=== PATIENT | male | born 1990 | race Caucasian/White ===

== ENCOUNTER 2017-09-27 09:11 | Day surgery (SDC) | payer BC ==
[2017-09-20 16:31] LABS: BASOPHILS % 0.5 % (0.0-2.0); EOSINOPHILS # 0.2 10^3/ul (0.0-0.5); EOSINOPHILS % 2.8 % (0.0-7.0); HEMATOCRIT 42.6 % (42.0-52.0); HEMOGLOBIN 14.4 g/dl (14.0-18.0); LYMPHOCYTES # 1.1 10^3/ul (0.8-2.9); LYMPHOCYTES % 18.2 % (15.0-51.0); MEAN CORPUSCULAR HEMOGLOBIN 30.4 pg (29.0-33.0); MEAN CORPUSCULAR HGB CONC 33.8 g/dl (32.0-37.0); MEAN CORPUSCULAR VOLUME 90.1 fl (82.0-101.0); MEAN PLATELET VOLUME 10.5 fl (7.4-10.4); MONOCYTE # 0.7 10^3/ul (0.3-0.9); MONOCYTES % 12.7 % (0.0-11.0); NEUTROPHIL # 3.8 10^3/ul (1.6-7.5); NEUTROPHILS % 65.3 % (39.0-77.0); PLATELET COUNT 278 10^3/UL (140-415); RED BLOOD COUNT 4.73 10^6/ul (4.70-6.10); WHITE BLOOD COUNT 5.8 10^3/ul (4.8-10.8)
[2017-09-20 16:47] LABS: INR 1.2; PROTIME 15.4 Sec (11.9-14.9); PT RATIO 1.2
[2017-09-20 16:48] LABS: PARTIAL THROMBOPLASTIN TIME 28.5 Sec (25.0-35.0)
[2017-09-20 16:49] LABS: ALBUMIN 4.5 g/dl (3.3-4.9); ALBUMIN/GLOBULIN RATIO 1.45; BILIRUBIN,INDIRECT 0.4 mg/dl (0-1.1); BILIRUBIN,TOTAL 0.4 mg/dl (0.2-1.3); TOTAL PROTEIN 7.6 g/dl (6.1-8.1)
[2017-09-20 17:08] LABS: CALCIUM 9.4 mg/dl (8.4-10.2); CREATININE 1.01 mg/dl (0.61-1.24); POTASSIUM 4.2 mmol/L (3.5-5.1)
--- NOTE | 2017-09-20 17:25 | RADRPT ---
PROCEDURE: XR Chest. CLINICAL INDICATION: ACUTE BRONCHITIS TECHNIQUE: PA and Lateral views of the chest were obtained. COMPARISON: None. FINDINGS: The cardiomediastinal silhouette is within normal limits. The lungs are clear. No signs of pleural f luid or pneumothorax are seen. The osseous structures and soft tissues are unremarkable. IMPRESSION: No evidence for active cardiopulmonary disease. RPTAT:AAJJ Charlene Tan Physician Date Time Electronically viewed and signed by Charlene Tan Physician on 09/20/2017 17:25 QL/
[2017-09-20 18:20] LABS: ADD UMIC NO; UR ASCORBIC ACID NEGATIVE (NEGATIVE); UR BILIRUBIN (Dip) NEGATIVE (NEGATIVE); UR BLOOD (Dip) NEGATIVE (NEGATIVE); UR CLARITY CLEAR (CLEAR); UR COLOR YELLOW (YELLOW); UR GLUCOSE (Dip) NEGATIVE (NEGATIVE); UR KETONES (Dip) NEGATIVE (NEGATIVE); UR LEUKOCYTE ESTERASE (Dip) NEGATIVE Leu/ul (NEGATIVE); UR NITRITE (Dip) NEGATIVE (NEGATIVE); UR SPECIFIC GRAVITY (Dip) 1.021 (1.003-1.030); UR TOTAL PROTEIN (Dip) NEGATIVE (NEGATIVE); UR UROBILINOGEN (Dip) NEGATIVE (NEGATIVE)
--- NOTE | 2017-09-25 12:35 | HP ---
DATE OF ADMISSION: 09/24/2017 Rupinder Ellis do last or. HISTORY OF PRESENT ILLNESS: The patient is a 27-year-old gentleman who is being admitted on an elec tive basis for right inguinal hernia repair by Dr. Farmer. The patient has been having persistent pain for the past 3 years, which has been getting worse. REVIEW OF SYSTEMS: HEAD: No history of headaches, focal weakness, or numbness. EYES: No blurry vision or glaucoma. ENT: Noncontributory. NECK: No history of thyroid disease. CHEST: No bronchitis, hay fever, or asthma. Patient does not smoke. CARDIOVASCULAR: No PND, orthopnea, palpitations or shortness of breath. GASTROINTESTINAL: No constipation, diarrhea, change in bowel habits. GENITOURINARY: No dysuria, hematuria, kidney stones. SKIN: No history of any skin lesions which was changed color size or shape. PRIOR SURGERIES: Include appendectomy at age 13. SLEEP: Normal. No history of snoring. FAMILY HISTORY: There is no history of diabetes, hypertension or cancer. He has 2 sisters, normal and healthy. ALLERGIES: NO KNOWN ALLERGIES. MEDICATIONS: None. PHYSICAL EXAMINATION: GENERAL: The patient is an average-built male who is very pleasant, in no acute distress. VITAL SIGNS: Blood pressure 120/80, respiratory 20 per minute. HEENT: Head normocephalic. No pallor, cyanosis, or icterus. Tongue is moist. NECK: Supple. No thyromegaly, bruits or lymphadenopathy. CHEST: Air entry bilaterally symmetrical. No rales or rhonchi. HEART: S1, S2 heard with no gallops, murmurs, or thrills. ABDOMEN: Soft, nontender. Bowel sounds active. Right inguinal hernia present. Few small discrete nodes noted in the inguinal area bilaterally, nontender, freely mobile. EXTREMITIES: No edema. Pedal pulsations 4+ bilaterally. Homans sign is negative. NEUROLOGIC: Alert, oriented x3. Cranial nerves II through XII within normal limits. No localizing or lateralizing signs. RECTAL: Deferred at patient's request. LABORATORY DATA: WBC count 5.8, hematocrit 42.6, platelet count was 278,000. Sodium 142, potassium 4.2, glucose 85, BUN 19, creatinine 1.01. PT/INR 1.20, PTT 28.5. Urinalysis negative for protein, some glucose. Chest x-ray shows normal size heart, lung candelaria clear. IMPRESSION: Symptomatic right inguinal hernia. The patient will be followed up as outpatient for any change in the lymph node examination and furth er testing will be done if necessary. His medical condition is stable for the proposed surgery per Dr. Farmer. Dictated By: CARRI RUELAS MD SR/NTS Conf#: [id number] DID#: [id number]
[2017-09-26 13:50] VITALS: BMI 25.9
[~2017-09-27] VITALS: Ht 170.2 cm; Wt 72.9 kg
[2017-09-27] VITALS (12 sets, daily range): BP systolic 103–131; BP diastolic 56–84; PULSE 56–70; RESP 14–18; Ht 170.2 cm; Wt 72.9 kg
[~2017-09-27 09:11] MED LIST: ACETAMINOPHEN 1000 MG/100 ML IVPB ONE; CEFAZOLIN 1 GM INJ ONE; CEFAZOLIN 2 GM/50 ML (PMX) 50 ML IVPB SCH; LIDOCAINE 2% (SDV) 5 ML INJ ONE; PROPOFOL 1000 MG INJ ONE; ROCURONIUM 50 MG INJ ONE
[2017-09-27] MEDS ORDERED: CLOP75TA27 PO (09:45)
[2017-09-27] MEDS ORDERED: CARV3.12 PO (09:45)
[2017-09-27] MEDS ORDERED: ATOR80TA75 PO (09:45)
[2017-09-27] MEDS ORDERED: LISI-313 PO (09:45)
[2017-09-27] MEDS ORDERED: BUPIVACAINE 0.25%/EPI (SDV) 30 ML INJ ONE (10:07)
[2017-09-27] MEDS ORDERED: LIDOCAINE 1% (MPF) 30 ML INJ ONE (10:07)
[2017-09-27] MEDS ORDERED: MIDAZOLAM 1 MG/ML 2 ML INJ ONE (10:58)
--- NOTE | 2017-09-27 11:03 | HPN ---
Date/Time of Note Date/Time of Note DATE: 09/27/17 TIME: 11:03 Interval H&P Admission Note Pt. seen H&P reviewed: No system changes TAYE MOREL MD Sep 27, 2017 11:03
[2017-09-27] MEDS ORDERED: DEXAMETHASONE 4 MG/ML 1 ML INJ ONE (11:38)
[2017-09-27] MEDS ORDERED: LABETALOL HCL 20MG INJ ONE (11:40)
[2017-09-27] MEDS ORDERED: ROPIVACAINE 0.2% 20 ML VIAL ONE (12:41)
[2017-09-27] MEDS ORDERED: KETOROLAC 30 MG INJ ONE (12:47)
[2017-09-27] MEDS ORDERED: ONDANSETRON 4 MG INJ ONE (12:53)
[2017-09-27] MEDS ORDERED: morphine 10 MG INJ IM PRN (13:30)
[2017-09-27] MEDS ORDERED: ONDANSETRON 4 MG INJ IV PRN ×2 (13:30→14:00)
[2017-09-27] MEDS ORDERED: HYDROCODONE/APAP (5/325) TAB PO PRN ×2 (13:30)
--- NOTE | 2017-09-27 13:50 | OPR ---
Date/Time of Note Date/Time of Note DATE: 09/27/17 TIME: 13:47 Operative Report Procedure Date: Sep 27, 2017 Preoperative Diagnosis 1. Left inguinal hernia 2. Right inguinal hernia 3. Ventral hernia Postoperative Diagnosis 1. Left inguinal direct and indirect hernias 2. Right inguinal direct and indirect hernias 3. Ventral hernia Operation/Procedure Performed 1. Laparoscopic bilateral inguinal herniorrhaphy 2. Ventral herniorrhaphy 3. Local anesthetic injection, [id number] Surgeon Taye Morel MD Spectrograph Operator Elisa Aviles NP Anesthesia Type: general (Plus local plus regional) Anesthesiologist: KRUNAL BHANDARI Estimated Blood Loss: 0 - 10 ml's Transfusion None Specimen None Grafts/Implants 2(10 x 15) cm ventral light ST Bard meshes 4.3 cm ventral patch Tubes/Drains None Complications None Pt Condition Post Procedure: stable Disposition: PACU Indications Symptomatic hernias here for surgical repair. Risks include but are not limited to bleeding, infection, abscess, seroma, hematoma, damage to intestines, damage to spermatic structures, loss of testicle , sensation loss to the thigh and scrotum, recurrence of hernia, chronic pain, need for re-operations or further surgeries, MN, stroke, PE, DVT, pneumonia, organ failures, or even . Procedure Description Patient was brought and placed supine on the operating table SCDs were placed, preoperative antibiotics were administered, all pressure points were well-padded , both arms were tucked, and after induction of anesthesia patient was prepped and draped in usual sterile fashion and timeout was performed. Incision was made in the supraumbilical region, using blunt dissection through the ventral hernia abdomen was entered 12 mm port was applied and abdomen was insufflated to 15 mils of mercury with CO2. Veress was safely inserted, and after a negative SIP test, abdomen was insufflated to 15mmHg. Veress was removed and 12mm port was safely inserted. Laparoscopy was performed with a 5 mm 30 scope. No injuries were identified. Both left and right direct and indirect inguinal hernias were identified. On either side of the abdomen, lateral to the rectus, avoiding the inferior epigastric vessels, 2 5 mm ports were inserted under direct visualization. All port sites were injected with quarter percent Marcaine with epi and 1% lidocaine prior to any incisions. Patient was placed in Trendelenburg and initially left than right side up. The peritoneum was opened over the side of the each hernia and the peritoneum was dissected off of the abdominal wall, inferior epigastric vessels, and spermatic structures. Care was taken not to injure any of the structures. The pubic tubercle was identified medially. There was complete hemostasis. 10 [address] mesh was placed at the inguinal sites. Mesh was secured to the tubercle medially, anterior to the abdominal wall, and laterally to the abdominal wall using securestrap tacker. The peritoneum was pulled over the mesh and secured to itself fully covering the mesh using the same tacker. 12 mm made port site fascia was closed with Endo Close and 0 Vicryl in a figure- of-eight manner after 4.3 cm ventral patch was placed and secured to the fascia with 0 Vicryl through each leaf. Ports and CO2 were removed under direct visualization. There was complete hemostasis. Wounds were thoroughly irrigated skin was closed with 4-0 Monocryl in subcuticular fashion. Dermabond was applied. Patient was extubated and transferred to recovery room in stable condition and all counts were correct and the end of the operation 2. TAYE MOREL MD Sep 27, 2017 13:50
[2017-09-27] MEDS ORDERED: LABETALOL HCL 20MG INJ IV PRN (14:00)
[2017-09-27] MEDS ORDERED: DIPHENHYDRAMINE 50 MG INJ IV PRN (14:00)
[2017-09-27] MEDS ORDERED: MEPERIDINE 25 MG INJ IV PRN (14:00)
[2017-09-27] MEDS ORDERED: ALBUTEROL 0.083% (NEB) 2.5 MG/3 ML AMP HHN PRN (14:00)
[2017-09-27] MEDS ORDERED: KETOROLAC 30 MG INJ IV PRN (14:00)
[2017-09-27] MEDS ORDERED: EPHEDrine SULFATE 50 MG/5 ML SYG IV PRN (14:00)
[2017-09-27] MEDS ORDERED: hydrALAzine 20 MG INJ IV PRN (14:00)
[2017-09-27] MEDS ORDERED: MIDAZOLAM 1 MG/ML 2 ML INJ IV PRN (14:00)
[2017-09-27] MEDS ORDERED: OXYCODONE/ACETAMINOPHEN (5/325) TAB PO PRN ×2 (14:00)
[2017-09-27] MEDS ORDERED: HYDROmorphONE (0.2 MG/ML) 10ML SYG IV PRN ×3 (14:00)
[2017-09-27] MEDS ORDERED: FENTAnyl 50 MCG/ML VIAL IV PRN ×3 (14:00)
[2017-09-27] MEDS ORDERED: METOCLOPRAMIDE 10 MG INJ IV PRN (14:00)
== END 2017-09-27 16:05 | disposition home or self-care (01) ==
LOC: SDS 09:11
PROVIDERS: ATTEND Surgery
DX: K40.20 Bilateral inguinal hernia, without obstruction or gangrene, not specified as recurrent (principal); K43.9 Ventral hernia without obstruction or gangrene
CPT/HCPCS: 49560; 49650; 71020; 80053; 81003; 85025; 85610; 85730; C1781; J0131; J0690; J1100; J1885; J2250; J2405; J2795; J3010

== ENCOUNTER → 2017-10-31 | Outpatient (CLI) | END | disposition home or self-care (01) ==